=== PATIENT | female | born 1955 | race Caucasian/White ===

== ENCOUNTER → 2019-07-15 | Outpatient (REF) | payer BC | LOC: M LAB LCGH 11:44 | PROVIDERS: ATTEND Family Medicine | DX: Z12.4 Encounter for screening for malignant neoplasm of cervix (principal) ==

== ENCOUNTER 2019-12-18 06:44 | Day surgery (SDC) | payer BC ==
[~2019-12-18] VITALS: Ht 157.5 cm; Wt 90.3 kg
[~2019-12-18 06:44] MED LIST: BENZ200C70 PO; CEFU50TA PO; ENAL10TA10 PO; PRAV40TA2 PO; PRED10PA2 PO; VITA500079 PO
[2019-12-18] MEDS ORDERED: fentaNYL 100 MCG/2 ML INJECTION (J3010) As Ordered ONE ×2 (07:12→07:13)
[2019-12-18] MEDS ORDERED: MIDAZOLAM INJ 2 MG/2 ML VIAL (J2250) As Ordered ONE ×3 (07:13→07:44)
[2019-12-18] MEDS ORDERED: THROMBIN SOLN 5,000 UNITS VIAL As Ordered ONE ×2 (07:15→07:54)
[2019-12-18] MEDS ORDERED: LIDOCAINE 1% MDV 20ML VIAL As Ordered ONE (07:24)
[2019-12-18] MEDS ORDERED: LIDOCAINE VISCOUS 2% SOLN 15ML UDC As Ordered ONE (07:25)
--- NOTE | 2019-12-18 09:00 | RO ---
DATE OF PROCEDURE: 12/18/2019 PREPROCEDURE DIAGNOSES: Abnormal CT scan with right upper lobe collapse, mediastinal mass. POSTPROCEDURE DIAGNOSIS: Abnormal CT scan with right upper lobe collapse, mediastinal mass. Tumor infiltration of the distal trachea, right mainstem. PROCEDURE: Fiberoptic bronchoscopy with brushes, biopsies, washes and photos. SURGEON: Dr. Kermit Rios. VAULT ATTENDANT: ANESTHESIA: Conscious sedation with 6 mg of Versed, 50 mcg of fentanyl given intravenously in a sequential fashion and titrated for effect. Topical anesthesia was 2% viscus xylocaine to the nose, Cetacaine spray in the pharynx and 1% Xylocaine via the bronchoscope. Other medications is topical thrombin 5000 units times two for a total of 10,000 units given via the bronchoscope. OPERATIVE FINDINGS: 1. Tumor infiltration of the distal trachea into the right mainstem. 2. Complete obstruction of the right upper lobe. 3. Extension of the tumor into the bronchus intermedius. DESCRIPTION OF PROCEDURE: After the patient was identified and the above anesthesia given, the fiberoptic bronchoscope was easily passed through the right nares. Hypopharynx was entered and appeared normal. Vocal cords moved well. Proximal trachea widely patent. In the distal trachea, it was evident that there was tumor infiltration into the proximal trachea on the right side. The cristiane was broadened and shifted. Left lung was entered first. Upper and lower lobes were easily identified and widely patent without obvious endobronchial mucosal abnormalities. Attention was then returned to the right. Gross tumor infiltration of the distal trachea into the right lung was noted. There was complete obstruction of the right upper lobe. Multiple polypoid tumors were see that were quite friable with sequelae of recent bleeding. This extended down into the bronchus intermedius. The scope was able to be passed beyond it. Right middle lobe and lower lobe basilar segments easily identified generally widely patent. Multiple biopsies as well as brushes were taken of the tumor in and around the area of the right upper lobe. Two bleed easily. It was able to be controlled with topical epinephrine and topical thrombin and saline lavage. When adequate hemostasis was assured, the scope was then withdrawn and the procedure terminated. Patient was taken to the recovery area in good stable condition. No immediate complications were identified.
[2019-12-18 09:15] VITALS: BP 134/80
== END 2019-12-18 09:23 | disposition home or self-care (01) ==
LOC: M OPP 06:44
PROVIDERS: ATTEND Internal Medicine Pulmonary Disease
DX: C34.81 Malignant neoplasm of overlapping sites of right bronchus and lung (principal); J98.19 Other pulmonary collapse; I10 Essential (primary) hypertension; E78.00 Pure hypercholesterolemia, unspecified; Z85.40 Personal history of malignant neoplasm of unspecified female genital organ; Z79.899 Other long term (current) drug therapy
CPT/HCPCS: 31623; 31625; 88104; 88305; J2250; J3010

== ENCOUNTER → 2020-01-06 | Outpatient (CLI) | payer BC ==
--- NOTE | 2020-01-08 13:57 | REP ---
PET/CT: History: Staging right upper lobe lung carcinoma. Bronchoscopic diagnosis of adenocarcinoma. Comparisons: Comparison CT study of the chest November 26, 2019 from [facility]. TECHNIQUE: 45 minutes following the intravenous injection of a 9.11 mCi dose of F-18 FDG, three-dimensional PET scintigraphy is acquired from the skull base to the proximal thighs. Triplanar noncontrast CT scanning is acquired through the same anatomic range for attenuation correction, and image registration with scan parameters optimized to minimize radiation exposure to the patient. PET scintigraphy and CT datasets were fused and displayed on a workstation with multiplanar and projection display capability. PET/CT Findings: Head and neck soft tissues are unremarkable. The right upper lobe shows lobar collapse. There is bulky right hilar and precarinal and pretracheal mediastinal lymphadenopathy which is hypermetabolic. Maximum standard uptake value in the right hilar and precarinal mediastinal adenopathy is 12.29. There is right superior mediastinal hypermetabolic adenopathy, maximum SUV 6.35. There is a somewhat rounded focus of hypermetabolic uptake in the collapsed right upper lobe parenchyma with maximum standard uptake value of 4.65. The remainder of the collapsed right upper lobe shows no hypermetabolic uptake. There is no abnormal adrenal uptake. No abnormal abdominal or pelvic uptake is seen. No abnormal skeletal uptake is appreciated. Impression: Hypermetabolic uptake in the right hilus and precarinal and right superior mediastinal lymph nodes with postobstructive atelectasis of the right upper lobe. Findings morphologically most consistent with primary lung carcinoma with adenopathy and lobar collapse in the right upper lobe. No other abnormal hypermetabolic uptake seen. Electronically Signed by Raymon Greenfield MD 01/08/2020 02:34 P
== END ==
LOC: M PLARAD 13:23
PROVIDERS: ATTEND Internal Medicine Pulmonary Disease
DX: C34.11 Malignant neoplasm of upper lobe, right bronchus or lung (principal)
CPT/HCPCS: 78815; A9552

== ENCOUNTER → 2021-02-28 | Outpatient (CLI) | payer BC, OTHER ==
--- NOTE | 2021-03-01 08:43 | REP ---
INDICATION: MALIGNANT NEOPLASM OF RIGHT MAIN BRONCHUS C34.01. Right lung adenocarcinoma. Post chemotherapy. COMPARISON: Comparison PET-CT study January 06, 2020. Comparison chest CT November 26, 2019.. TECHNIQUE: Forty-eight minutes following the intravenous injection of a 18.48 mCi dose of F-18 FDG, three-dimensional PET scintigraphy is acquired from the skull base to the proximal thighs. Triplanar noncontrast CT scanning is acquired through the same anatomic range for attenuation correction, and image registration with scan parameters optimized to minimize radiation exposure to the patient. PET scintigraphy and CT datasets were fused and displayed on a workstation with multiplanar and projection display capability. FINDINGS: Head and neck soft tissues are unremarkable today. There is considerable improvement in chest. Low level uptake is seen in atelectatic regions of the right upper lobe and right middle lobe post treatment. Maximum standard uptake value in these areas of collapse is 2.9823.59. Previously, the hypermetabolic masses in this region at the SUV value 12.29. Previously noted adenopathy has regressed substantially and is barely visible. A left-sided [id number] catheter is seen. There is volume loss in right hemithorax. There is a small focus of cyst chest wall the skeletal muscle soft tissue uptake adjacent to the right 2nd rib. No rib lesion is apparent. In the abdomen and pelvis, there is normal hepatic and, splenic, gastrointestinal, and genitourinary FDG accumulation. No abnormal hypermetabolic uptake is seen. Gallstones are again noted. Scintigraphy is otherwise unremarkable. IMPRESSION: Significant improvement. Atelectasis fibrosis and air bronchograms are seen in the right lung perihilar region post treatment. No suspicious hypermetabolic uptake focus is seen. Adenopathy noted previously appears to have resolved. No other abnormal hypermetabolic uptake is seen. <Electronically signed by Robin Greenfield > 03/01/21 [id number]
== END ==
LOC: M PLARAD 13:27
PROVIDERS: ATTEND Physician Assistant
DX: C34.01 Malignant neoplasm of right main bronchus (principal)
CPT/HCPCS: 78815; A9552